=== PATIENT | male | born 1990 | race Caucasian/White ===

== ENCOUNTER 2016-10-14 15:22 | Inpatient (IN) | payer MEDICAID ==
[2016-10-14] MEDS ORDERED: HYDROmorphONE/DILAUDID 1 MG/ML SYR ONE ×2 (15:32→20:55)
[2016-10-14] MEDS ORDERED: HYDROmorphONE/DILAUDID 1 MG/ML SYR IVP ONE (15:37)
--- NOTE | 2016-10-14 15:42 | EDPHY ---
H & P Time Seen by Provider: 10/14/16 15:40 HPI/ROS: CHIEF COMPLAINT: Left femur injury HISTORY OF PRESENT ILLNESS: The patient is brought to the ED by ambulance after he sustained an injury to his left leg skiing. The patient struck a tree at a moderate rate of speed. The patient reported a sensation of bony crepitus in his left thigh following the collision. The patient reports moderate pain to the area. He denies any complaints of pain in his left hip, back, knee or ankle. The patient denies associated numbness or weakness. The patient did not strike his head or lose consciousness. He specifically denies headache, neck pain, chest pain or difficulty breathing. The patient reports his pain level is currently an 8/10. The patient received IV fentanyl and morphine prior to arrival. The patient reports he did have a few drinks of a smoothie at around noon. He last ate solid food breakfast around 7-8 o'clock this morning. REVIEW OF SYSTEMS: A comprehensive 10 point review of systems is otherwise negative aside from elements mentioned in the history of present illness. Source: Patient Exam Limitations: No limitations - Medical/Surgical History PMH: Past medical history: Noncontributory - Family History Significant Family History: No pertinent family hx - Social History Smoking Status: Never smoked - Physical Exam Exam: General Appearance: Alert, moderate distress from pain Head: Atraumatic Eyes: Pupils equal, round, reactive ENT, Mouth: No hemotympanum, no oral trauma Neck: Nontender, trachea midline Respiratory: No chest wall tender, subcutaneous air, lungs clear bilaterally Cardiovascular: Regular rate and rhythm Abdomen: Abdomen is soft and nontender, pelvis stable Skin: No lacerations, No abrasion Back: No midline T/L/S pain Extremities: Tenderness and swelling noted along with crepitus in the left thigh. 2+ dorsalis pedis and posterior tibial pulse Neurological: 5/5 strength noted throughout the left lower extremity, sensation intact to light touch. Constitutional: Initial Vital Signs Temperature (C) 36.9 C 10/14/16 15:22 Heart Rate 58 L 10/14/16 15:22 Respiratory Rate 18 10/14/16 15:22 Blood Pressure 137/82 H 10/14/16 15:22 O2 Sat (%) 100 10/14/16 15:22 O2 Delivery Mode Nasal Cannula O2 (L/minute) 2 Allergies/Adverse Reactions: No Known Allergies Allergy (Unverified 05/04/10 08:36) Home Medications: Medication Instructions Recorded NK [No Known Home Meds] 10/14/16 Medical Decision Making - Diagnostics Imaging: Femur x-ray: Mid shaft left femur fracture with approximately 5 3 cm of shortening, 100% displaced, varus angulation ED Course/Re-evaluation: The patient had an IV established. He was placed on a monitoring specialist. He received supplemental oxygen. Patient received an additional 1 mg of Dilaudid for ongoing pain. The patient is noted to have a shortened midshaft femur fracture. The patient has been placed in a Hare traction splint. 4:00 p.m.: Orthopedic surgery has been paged. 4:15 p.m.: I spoke with Dr. Torre's PA, Mike. They are making arrangements to take the patient to the OR this evening. 4:30 p.m.: Patient informed of plan for ORIF this evening. Surgical time pending. Plan will be for ongoing IV narcotic medications as needed. Patient continues to be neurovascularly intact while in Hare traction. Differential Diagnosis: Differential diagnosis considered includes fracture, sprain, dislocation, neurovascular injury - Data Points Laboratory Results: Laboratory Results 10/14/16 15:44 10/14/16 15:44 10/14/16 15:44 WBC 13.74 H 10^3/uL (3.80-9.50) RBC 5.19 10^6/uL (4.40-6.38) Hgb 16.6 g/dL (13.7-17.5) Hct 46.4 % (40.0-51.0) MCV 89.4 fL (81.5-99.8) MCH 32.0 pg (27.9-34.1) MCHC 35.8 g/dL (32.4-36.7) RDW 12.3 % (11.5-15.2) Plt Count 283 10^3/uL (150-400) MPV 10.4 fL (8.7-11.7) Neut % (Auto) 79.1 H % (39.3-74.2) Lymph % (Auto) 11.8 L % (15.0-45.0) [place] % (Auto) 8.0 % (4.5-13.0) Eos % (Auto) 0.3 L % (0.6-7.6) Baso % (Auto) 0.4 % (0.3-1.7) Nucleat RBC Rel Count 0.0 % (0.0-0.2) Absolute Neuts (auto) 10.87 H 10^3/uL (1.70-6.50) Absolute Lymphs (auto) 1.62 10^3/uL (1.00-3.00) Absolute Monos (auto) 1.10 H 10^3/uL (0.30-0.80) Absolute Eos (auto) 0.04 10^3/uL (0.03-0.40) Absolute Basos (auto) 0.05 10^3/uL (0.02-0.10) Absolute Nucleated RBC 0.00 10^3/uL (0-0.01) Immature Gran % 0.4 % (0.0-1.1) Immature Gran # 0.06 10^3/uL (0.00-0.10) Sodium 142 mEq/L (134-144) Potassium 4.2 mEq/L (3.5-5.2) Chloride 102 mEq/L (97-110) Carbon Dioxide 26 mEq/l (22-31) Anion Gap 14 mEq/L (8-16) BUN 10 mg/dL (7-23) Creatinine 0.7 mg/dL (0.7-1.3) Estimated GFR > 60 Glucose 78 mg/dL (70-100) Calcium 9.7 mg/dL (8.5-10.4) Medications Given: Discontinued Medications Hydromorphone HCl (Dilaudid) 1 mg IVP EDNOW ONE Stop: 10/14/16 15:38 Last Admin: 10/14/16 15:35 Dose: 1 mg Departure - Departure Disposition: [facility] Inpatient Acute Clinical Impression: Fracture of femoral shaft, left, closed Condition: Good Referrals: Patient,NotPresent [Primary Care Provider] - As per Instructions
--- NOTE | 2016-10-14 15:57 | DX ---
Left femur 2 views History: Deformity and pain after striking tree while skiing. Comparison: None available. Findings: There is a transverse fracture of the mid femoral diaphysis with one shaft width medial dis placement and 4 cm overriding, with minimal medial angulation. Alignment of the hip and knee is ashly l. Extensive soft tissue swelling is present. Impression: Mildly displaced transverse fracture of the mid femoral diaphysis.
[2016-10-14 16:06] LABS: % IMMATURE GRANULYOCYTES 0.4 % (0.0-1.1); ABSOLUTE IMMATURE GRANULOCYTES 0.06 10^3/uL (0.00-0.10); ADD DIFF? NO; ADD MORPH? NO; ADD SCAN? NO; ATYPICAL LYMPHOCYTE FLAG 10 (0-99); FRAGMENT RBC FLAG 0 (0-99); HEMATOCRIT 46.4 % (40.0-51.0); HEMOGLOBIN 16.6 g/dL (13.7-17.5); LEFT SHIFT FLG 0 (0-99); LIPEMIA HEMOLYSIS FLAG 90 (0-99); MEAN CELL HEMOGLOBIN CONCENTR. 35.8 g/dL (32.4-36.7); MEAN CELL VOLUME 89.4 fL (81.5-99.8); MEAN PLATELET VOLUME 10.4 fL (8.7-11.7); PLATELET CLUMPS FLAG 0 (0-99); PLATELET COUNT 283 10^3/uL (150-400); RED BLOOD CELL COUNT 5.19 10^6/uL (4.40-6.38); RED CELL DISTRIBUTION WIDTH 12.3 % (11.5-15.2)
[2016-10-14] MEDS ORDERED: LORazepam 2 MG/ML INJ IVP PRN (16:20)
[2016-10-14] MEDS ORDERED: DIAZEPAM 10 MG/2 ML SYR IVP PRN (16:20)
[2016-10-14] MEDS ORDERED: ONDANSETRON 4 MG/2 ML VIAL IVP PRN (16:20)
[2016-10-14] MEDS ORDERED: HYDROmorphONE/DILAUDID 1 MG/ML SYR IVP PRN (16:20)
[2016-10-14] MEDS ORDERED: ceFAZolin 2 GM/DEXTROSE 100 ML IV ONE (16:20)
[2016-10-14 16:21] LABS: ANION GAP 14 mEq/L (8-16); CALCIUM 9.7 mg/dL (8.5-10.4); CARBON DIOXIDE 26 mEq/l (22-31); CHLORIDE 102 mEq/L (97-110); CREATININE 0.7 mg/dL (0.7-1.3); GLOMERULAR FILTRATION RATE > 60; GLUCOSE 78 mg/dL (70-100); POTASSIUM 4.2 mEq/L (3.5-5.2); SODIUM 142 mEq/L (134-144)
[2016-10-14] MEDS ORDERED: D5W 1/2 NS 1,000 ML IV SCH (16:30)
[2016-10-14] MEDS ORDERED: NS 1,000 ML IV ONE (16:40)
--- NOTE | 2016-10-14 16:47 | CPEKG ---
Heart Rate: 63 RR Interval: 952 P-R Interval: 136 QRSD Interval: 98 QT Interval: 400 QTC Interval: 410 P Baltic: 56 QRS Baltic: 72 T Wave Baltic: 30 EKG Severity - NORMAL ECG - EKG Impression: SINUS RHYTHM Electronically Signed By: Giovanna Lawler 14-Oct-2016 21:40:24
[2016-10-14] MEDS ORDERED: CEFAZOLIN 2 GM/DEXTROSE/100 ML BAG IV ONE (16:55)
--- NOTE | 2016-10-14 17:04 | DX ---
Portable chest History: Preoperative clearance, femoral fracture. Comparison: PA and lateral chest March 14, 2011. Findings: There is mild peribronchial thickening without focal consolidation. There is no pneumothora x or pleural effusion. The heart and pulmonary vasculature are normal. The bones are normal. Impression: Mild peribronchial thickening suggesting airways disease/bronchitis.
[2016-10-14 17:09] LABS: INR 1.11 (0.83-1.16); PROTIME(PATIENT) 14.2 SEC (12.0-15.0)
[2016-10-14] MEDS ORDERED: BUPIVACAINE/EPI 0.5% 30 ML SDV ONE (18:10)
[2016-10-14] MEDS ORDERED: MIDAZOLAM 2 MG/2 ML VIAL ONE (18:37)
--- NOTE | 2016-10-14 18:58 | GHP ---
[f rep st] HISTORY AND PHYSICAL DATE OF ADMISSION: 10/14/2016 CHIEF COMPLAINT: Left leg pain. HISTORY OF PRESENT ILLNESS: The patient is a pleasant 26-year-old male who presents to the emergency room complaining of left leg pain. He was brought to the ED by ambulance after sustaining an injury to his left leg skiing earlier today at [facility]. The patient states he struck a tree at moderate rate of speed, but did not lose consciousness. He reports an initial sensation of bony crepitus in his left thigh following the collision, as well as [id number] pain. He denies any additional pain in his left hip, back , bilateral knees or bilateral ankles. He denies any upper extremity pain, as well as any head or neck pain. He also denies any associated numbness or tingling into his bilateral lower extremities. Again, the patient states he did not sustain any head injuries or lose consciousness. He, again, specifically denies any headache, neck pain, chest pain, difficulty breathing or increased work of breathing. He reports his current pain level is approximately 6/10, as they are being moved to the preoperative waiting area. He received IV fentanyl and IV morphine prior to arrival, as well as IV hydromorphone in the ED. The patient reports he last ate solid food this morning at breakfast, as well as a few drinks of a smoothie around noon. He has no additional concerns or complaints at this time. PAST MEDICAL HISTORY: None, the patient denies any significant past medical history. PAST SURGICAL HISTORY: The patient reports previous surgery on left shoulder, which he describes as a capsulorrhaphy. The patient denies any additional past surgical history. CURRENT MEDICATIONS: None, the patient denies any current medication use. ALLERGIES: The patient reports no known drug allergies, as well as no allergies to metals. SOCIAL HISTORY: The patient states he is not a current tobacco user, though does note smoking on occasion. The patient reports current alcohol consumption approximately 5-7 drinks per week. The patient states recreational drug use of marijuana 3-5 times per week. FAMILY HISTORY: No significant contributory family history is reported today. REVIEW OF SYSTEMS: A 10-point review of systems was reviewed today with no additional concerns, complaints or abnormal findings not noted in the HPI or PMH. PHYSICAL EXAMINATION: GENERAL: Healthy-appearing male who presents in mild distress from pain. A&O x3, with appropriate mood and affect HEENT: NCAT. EOMI. PERRLA. Mouth and nares are patent and without discharge. Oropharynx is clear. NECK: NTTP, no midline TTP. Full ROM. Trachea midline. No cervical LAD noted. Negative Lhermitte's and Spurling's right and left. RESPIRATORY: CTAB. No increased WOB noted. No chest wall TTP. CARDIOVASCULAR: RRR, without M/C/G/R. ABDOMEN: Soft, NT/ND. No HSM noted. SKIN: No lacerations or abrasions noted. MUSCULOSKELETAL: Examination of the bilateral lower extremities is benign. Shoulder exam is benign bilaterally. Elbow exam is benign bilaterally. Hand, wrist, and finger exams are benign bilaterally. Examination of the left lower extremity reveals TTP and swelling, as well as crepitus noted with palpation of the left thigh. Mild dependent ecchymosis is normal noted. The patient is currently in a traction device, thus no abnormal rotation is noted. Pelvis is stable on exam. Right lower extremity exam reveals a benign hip, knee, ankle and foot exams. DNVI BLE. NEUROLOGICAL: Nonfocal. No deficits noted. DTRs are 2+ bilaterally in the upper and lower extremities. Speech is noted to be fluid and fluent. RADIOGRAPHS: Two views of the left femur are reviewed today showing a displaced transverse fracture of the midshaft of the left femur. No additional fracture or dislocation is noted. ASSESSMENT: Left mid femoral diaphysis fracture, displaced. PLAN: This patient's case and radiographs were reviewed with Dr. Torre today. Treatment options were discussed with the patient, who, at this time, has decided to proceed with an open reduction, internal fixation, with intermedullary nail of the left femur. Risks and benefits of surgical fixation were discussed with the patient today, and signed informed consent was obtained. A recuperative timeline was discussed with the patient. The patient will be admitted, and placed on IV Ancef for antibiotic prophylaxis, and taken to the operating room on 10/14/2016 where an open reduction, internal fixation of the left femur will be performed by Dr. Torre. The patient will follow up postoperatively 10 to 14 days after his procedure, or sooner with any additional concerns or complaints. All of the patient's questions have been answered today, and his concerns addressed. He has relayed his understanding of the current care plan and education presented today, and appears pleased with the care he has received thus far. /[id number]/MODL MTDD
[2016-10-14] MEDS ORDERED: FAMOTIDINE 20 MG TAB PO PRN (20:41)
[2016-10-14] MEDS ORDERED: HYDROCODONE/APAP 5/325 TAB PO PRN (20:41)
[2016-10-14] MEDS ORDERED: CYCLOBENZAPRINE 10 MG TAB PO PRN (20:41)
[2016-10-14] MEDS ORDERED: ACETAMINOPHEN 325 MG TAB PO PRN (20:41)
[2016-10-14] MEDS ORDERED: SIMETHICONE 80 MG TAB CHEW PO PRN (20:41)
[2016-10-14] MEDS ORDERED: D5W 1/2 NS W/ 20 KCl/L 1,000 ML IV SCH (20:45)
--- NOTE | 2016-10-14 21:14 | GOP ---
[f rep st] OPERATIVE REPORT DATE OF OPERATION: 10/14/2016 SURGEON: Abdi Torre MD LAUNDERETTE ATTENDANT: Bobby Saunders PA-C ANESTHESIA: General. PREOPERATIVE DIAGNOSIS: Left midshaft femur fracture. POSTOPERATIVE DIAGNOSIS: Left midshaft femur fracture. PROCEDURE PERFORMED: Open reduction, internal fixation left midshaft femur fracture. FINDINGS: DESCRIPTION OF PROCEDURE: The patient was taken the operating room, administered general anesthesia, placed in supine position on the fracture table. The fracture was reduced using distraction/slight internal rotation of the distal fracture segment. The leg was prepped and draped in normal sterile f ashion. A lateral incision was made over the greater trochanter. A starting drill was placed into t he greater trochanter. This was overdrilled with the starting drill. The ball-tip guide was then pl aced down through the femoral shaft. We threaded across the distal fracture segment. The keira length was measured at 360 mm. We began reaming over the keira with the starting 8.5 reamer. We then went u p in 1.5 mm increments until we had chatter at approximately 11 mm. The subsequent 3 reamings to 12. 5 mm were done in succession. We utilized an 11 nail 360 mm in length. The nail was put on the inse rtion device and packed into position. The proximal locking screw was then placed across the fractur e using the guide system and fluoroscopic control. The distal locking screw was used using fluorosco pic control. The proximal locking bolt measured 80 mm in length. The distal locking screw measured 40 mm in length. Irrigation was performed at all incisions. The incisions were closed with a 0 Vicr yl in the fascia layer, followed by 2-0 Vicryl in the subcutaneous tissues, followed by 4-0 Ethilon i n the dermis. A sterile compression dressing was applied. The patient tolerated the procedure well, was transported back to recovery in stable condition. There were no operative complications. COMPLICATIONS: None. /[id number]/MODL
--- NOTE | 2016-10-14 21:59 | DX ---
Left Femur, Two Views Clinical Indications: Postoperative follow up; comparison to the study performed earlier today at 15 39 hours. Findings: Postoperative changes of ORIF are seen, with an intramedullary keira traversing the midshaft femoral fracture, with fixation in anatomic position. The femoral neck nail is well positioned. Th e hardware is intact, and no postoperative complication is seen. Impression: Anatomic alignment of the midshaft left femoral fracture following ORIF.
--- NOTE | 2016-10-14 23:52 | DX ---
Fluoroscopy: 147.1 seconds, 15.99 mGy, of intraoperative fluoroscopy was utilized by Dr. Randall 4 left femoral inst rumentation. Five digital images show placement of an intramedullary keira and positioning for a femora l pin.
[2016-10-15] MEDS: OXYCODONE/APAP 5/325 TAB PO PRN ×3 (01:02→12:01)
[2016-10-15 01:20] LABS: COLOR YELLOW; LEUKOCYTE ESTERASE,URINE NEGATIVE (NEGATIVE); NITRITE,URINE NEGATIVE (NEGATIVE)
[2016-10-15] MEDS: ceFAZolin 2 GM/DEXTROSE 100 ML IV SCH ×2 (03:34→10:49)
[2016-10-15 06:08] LABS: HEMATOCRIT 39.2 % (40.0-51.0); HEMOGLOBIN 13.9 g/dL (13.7-17.5)
[2016-10-15 06:11] LABS: INR 1.15 (0.83-1.16); PROTIME(PATIENT) 14.6 SEC (12.0-15.0)
[2016-10-15 06:14] LABS: ANION GAP 10 mEq/L (8-16); CALCIUM 8.7 mg/dL (8.5-10.4); CARBON DIOXIDE 25 mEq/l (22-31); CHLORIDE 106 mEq/L (97-110); CREATININE 0.6 mg/dL (0.7-1.3); GLOMERULAR FILTRATION RATE > 60; GLUCOSE 114 mg/dL (70-100); POTASSIUM 4.5 mEq/L (3.5-5.2); SODIUM 141 mEq/L (134-144)
--- NOTE | 2016-10-15 07:12 | SOAPPROG ---
[facility] Progress Note Assessment/Plan: Assessment/ Plan: s/p ORIF L femur fracture POD#1 - Continue pain management - Continue PT - Continue ADEEL/SCDs for DVT prophylaxis - Partial weight bearing, up to 60lbs with crutches - Pt will be started on Lovenox at discharge x 3 weeks - Okay for discharge pending PT evaluation - Follow-up with Dr. Torre in 10-14 days in clinic 10/15/16 07:08 Subjective: Pt states his LLE is sore. but pain is well-controlled. He has not been out of bed since surgery. Pt denies fever, chills, SOB, chest pain, nausea, vomiting, calf tenderness, numbness and tingling. Objective: VSS, afebrile, lying in bed Vital Signs Temp Pulse Resp BP Pulse Ox 36.8 C 55 L 16 101/56 L 98 10/15/16 03:39 10/15/16 03:39 10/15/16 03:39 10/15/16 03:39 10/15/16 03:39 Laboratory Results 10/15/16 04:50 10/15/16 04:50 10/14/16 10/15/16 10/16/16 05:59 05:59 05:59 Intake Total 2000 Output Total 1200 Balance 800 PT 14.6 SEC (12.0-15.0) 10/15/16 04:50 INR 1.15 (0.83-1.16) 10/15/16 04:50 - Pending Discharge Pending Discharge Within 24 Hours: Yes Pending Discharge Date: 10/16/16 Pending Discharge Time: 11:00 Physical Exam - Physical Exam General Appearance: alert, no apparent distress Peripheral Pulses: 2+: dorsalis-pedis (R), dorsalis-pedis (L) Skin: normal color, warm/dry, other (Incision site c/d/i) Extremities: normal inspection, normal capillary refill, other (ADEEL hose and SCDs in place), No pedal edema, No calf tenderness, No swelling, No Sayda's sign Neuro/Psych: no motor/sensory deficits, alert, normal mood/affect ICD10 Worksheet Patient Problems: Problems Problem Status Diagnosed Fracture of femoral shaft, left, closed Acute
[2016-10-15 07:41] VITALS: RESP 18
[2016-10-15] MEDS ORDERED: FLU VACC QS 2016-17(3-64YR)/PF 0.5 ML SYR (FLUARIX QUAD) IM ONE (10:04)
[2016-10-15 12:09] VITALS: BP 119/71; PULSE 76; TEMP 98.3; O2SAT 98
--- NOTE | 2016-10-15 14:00 | PDDCSUM ---
Discharge Summary Discharge Summary: 26y/o M presented to the ED with left leg pain after falling while skiing on 08/2017. Pt arrived via ambulance and was found to have a midshaft, displaced fracture of his left leg. Pt was taken to surgery with ORIF of the left femur. Pain has been well managed with oxycodone BID and percocet for breakthrough pain. Pt wore ADEEL hose and SCDs throughout his hospital stay and started on Coumadin for VTE prophylaxis. Pt was given Ancef x 3 doses. He was evaluated by PT and remains partial weight bearing on the LLE. Upon discharge, Coumadin was switched to Lovenox due to patient preference. Hospital course was otherwise uneventful and will follow-up with Dr. Torre in 10-14 days.
== END 2016-10-15 14:44 | disposition home or self-care (01) | DRG 482 ==
LOC: EDUNIT# → F3N 21:18
PROVIDERS: ADMIT Orthopaedic Surgery Sports Medicine; ATTEND Orthopaedic Surgery Sports Medicine
PROC: 0QS904Z Reposition Left Femoral Shaft with Internal Fixation Device, Open Approach (ICD-10-PCS; principal; 2016-10-14 17:15)
DX: S72.322A Displaced transverse fracture of shaft of left femur, initial encounter for closed fracture (principal); V00.322A Snow-skier colliding with stationary object, initial encounter; Y93.23 Activity, snow (alpine) (downhill) skiing, snowboarding, sledding, tobogganing and snow tubing; Z23 Encounter for immunization
CPT/HCPCS: 96374; 97116-GP; 97161-GP; 97165-GO; C1713; C1769; G0008; J0690; J1170; J2250